=== PATIENT | female | born 1955 | race Caucasian/White ===

== ENCOUNTER 2016-12-04 18:12 | Emergency (ER) | payer BC, OTHER ==
[~2016-12-04] VITALS: Ht 157.5 cm; Wt 89.5 kg
[~2016-12-04 18:12] MED LIST: BIOTCAP2 PO; CALC1CHW32 PO; CHOL1TAB4 PO; CYAN10004 PO; DIPH50CA56 PO; EFFSR150 PO; GLC/500 PO; MAGN400T24 PO; MELO15TA4 PO; MULT-188 PO; NRN/300 PO; PRAM1TAB52; REMICADE; TRAM-10 PO; ZINC1TAB PO
[2016-12-04 18:17] VITALS: TEMP 37; Ht 157.5 cm; Wt 89.5 kg
[2016-12-04] MEDS ORDERED: [UNRECOGNIZED DRUG - CODE] PV (20:10)
[2016-12-04] MEDS ORDERED: ASPI325T45 PO (20:10)
[2016-12-04] MEDS ORDERED: OXYC-57 PO (20:10)
[2016-12-04] MEDS ORDERED: [UNRECOGNIZED DRUG - CODE] TOP (20:10)
[2016-12-04] MEDS ORDERED: NYSTCRE11 TOP (20:10)
[2016-12-04 21:24] LABS: URINE APPEARANCE CLEAR (CLEAR); URINE BILIRUBIN NEG (NEG); URINE COLOR YELLOW; URINE EPITHELIAL CELL AUTO 20-30 /lpf (0-5); URINE NITRITE POS (NEG); URINE SPECIFIC GRAVITY 1.025 (1.000-1.030); UROBILINOGEN NEG (NEG); ZZURINE CULT IF INDIC CATH YES
[2016-12-04 21:40] LABS: MANUAL MICROSCOPIC REQUIRED? NO; REVIEW REQ? NO
[2016-12-04] MEDS ORDERED: PHENAZOPYRIDINE HOME PACK 200 MG VIAL PO ONE (22:00)
[2016-12-04] MEDS ORDERED: SULFAMETHOXAZOLE/TRIMETHOPRIM DS 800/160MG TAB PO ONE (22:00)
[2016-12-04] MEDS ORDERED: SULF800T23 PO (22:21)
[2016-12-04] MEDS ORDERED: VALA1TAB2 PO (22:21)
[2016-12-04] MEDS ORDERED: CLOT1CRE3 TOP (22:21)
--- NOTE | 2016-12-04 22:22 | EMERGENCY ROOM VISIT NOTE ---
"History First contact with patient: 19:29 Chief Complaint: URINARY SYMPTOMS Stated Complaint: POSSIBLE SHINGLES, UTI, SYSTEMIC YEAST INFECTION Nursing Triage Summary: patient c/o possible shingles left back, history of shingles. Symptoms since patient c/o yeast under breasts, abdomen, vaginal. Urinary symtoms, frequency, urgency x 4 days getting worse. Fusion of left ankle Nov 08, no c/o with ankle. History of Present Illness The patient is a 61 year old female who presents to the Emergency Room with multiple complaints. The patient reports that she feels she may have shingles on her buttocks. She has had shingles in this location before and states it feels similar. She reports the rash started a few days ago. The patient also states that she has had ongoing issues with a yeast infection under her breasts , under her abdomen and in her groin. She states that there is redness of the skin and it is burning. She was previously prescribed nystatin cream and has been using this as needed. She has also been using a powder. She reports that she also has urinary symptoms for the past 4 days. She reports burning in her urine and a foul odor to the urine. She has had urinary tract infections in the past and states this feels similar. She has a history of fibromyalgia and ankylosing spondylitis and receives Remicade infusions. She reports her last infusion was 1.5 months ago. The patient denies any fevers, back pain, abdominal pain, nausea or vomiting. Review of Systems A complete 10-point Review of Systems was discussed with the patient, with pertinent positives and negatives listed in the History of Present Illness. All remaining Review of Systems questions can be considered negative unless otherwise specified. Social History Smoking Status: Never Smoker Marital Status: Housing Status: lives with significant other Current/Historical Medications Scheduled Aspirin (Aspirin), 325 MG PO BID Clotrimazole Vaginal (Clotrimazole), 1 APPLN TOP BID Gabapentin (Neurontin), 300 MG PO TID Metformin Hcl (Glucophage), 500 MG PO BID Powders (Anti Monkey Butt), 1 APPLN TOP prn Sulfa/Trimethoprim (Bactrim Ds 800MG/160MG), 1 TAB PO BID Tioconazole Vaginal (Monistat 1-Day), 1 APPLN PV PRN Valacyclovir Hcl (Valtrex), 1,000 MG PO TID Venlafaxine Hcl (Effexor Extended Rel), 150 MG PO DAILY [Remicade Inj], 1 DOSE INJ Q8WKS Scheduled PRN Nystatin/Triamcinolone (Mycogen || ), 1 APPLN TOP DAILY PRN for Oxycodone/Acetaminophen 5MG/325MG (Percocet 5MG/325MG), 1 TABLET PO Q4H PRN for Pain Allergies Coded Allergies: ALLERGY2 (Verified Allergy, Unknown, 12/04/16) Prochlorperazine (Verified Allergy, Unknown, 12/04/16) Uncoded Allergies: CONTRASTMEDIA (Allergy, Unknown, 01/05/10) Physical Exam Vital Signs Date Time Temp Pulse Resp B/P Pulse Ox O2 Delivery O2 Flow Rate FiO2 12/04/16 22:48 68 18 160/94 98 12/04/16 18:17 37.0 88 17 144/77 97 Room Air Physical Exam VITALS: Vitals are noted on the nurse's note and reviewed by myself. Vital signs stable. GENERAL: This is a 61-year-old female, in no acute distress, nondiaphoretic, well-developed well-nourished. SKIN: There is a vesicular, crusted, erythematous rash over the left upper buttock. It is very tender to palpation. Additionally, there is an erythematous, fungal appearing rash on her bilateral breasts, under the pannus, and in the upper inner thighs. HEART: Regular rate and rhythm without murmurs gallops or rubs. LUNGS: Clear to auscultation bilaterally without wheezes, rales or rhonchi. ABDOMEN: Soft, nontender to palpation. NEURO: Patient was alert and oriented to person place and time. Medical Decision & Procedures Laboratory Results Test 12/04/16 00:00 12/04/16 21:00 Urine Color YELLOW Urine Appearance CLEAR (CLEAR) Urine pH 6.0 (4.5-7.5) Urine Specific [place] 1.025 (1.000-1.030) Urine Protein NEG (NEG) Urine Glucose (UA) NEG (NEG) Urine Ketones NEG (NEG) Urine Occult Blood NEG (NEG) Urine Nitrite POS (NEG) Urine Bilirubin NEG (NEG) Urine Urobilinogen NEG (NEG) Urine Leukocyte Esterase TRACE (NEG) Urine WBC (Auto) 1-5 /hpf (0-5) Urine RBC (Auto) 0-4 /hpf (0-4) Urine Hyaline Casts (Auto) 1-5 /lpf (0-5) Urine Epithelial Cells (Auto) 20-30 /lpf (0-5) Urine Bacteria (Auto) 4+ (NEG) Medications Administered Medications (Trade) Dose Ordered Sig/Javier Route Start Time Stop Time Status Last Admin Dose Admin Valacyclovir HCl (Valtrex Tab) 1,000 mg NOW ONCE PO 12/04/16 22:00 12/04/16 22:01 DC 12/04/16 22:33 1,000 MG Trimethoprim/ Sulfamethoxazole (Septra Ds 800/ 160MG Tab) 1 tab NOW ONCE PO 12/04/16 22:00 12/04/16 22:01 DC 12/04/16 22:33 1 TAB Phenazopyridine HCl (Phenazopyridine HCl 200MG Home Pack) 1 homepack UD ONCE PO 12/04/16 22:00 12/04/16 22:01 DC 12/04/16 22:34 1 HOMEPACK Medical Decision Differential diagnosis includes herpes zoster, folliculitis, urinary tract infection, candidiasis, among others. The patient was evaluated as above. A urinalysis was performed which did show evidence of a urinary tract infection, with the presence of 4+ bacteria, positive nitrites and leukocyte esterase. She has been here once before for a urinary tract infection, which grew out pansensitive Escherichia coli. The patient is also requesting something for her candidal infection and possible herpes zoster. I am unsure at this time if this represents a herpes zoster or folliculitis in both bacterial and viral cultures were obtained. The patient's current medications and conditions were discussed with the ED pharmacist, who assisted in the decision-making process. The patient will be placed on Valtrex. She was given clotrimazole cream for her intertriginous candidiasis. She was given a prescription for Bactrim and Pyridium for her urinary tract infection pending the culture results. She will follow-up with her primary care provider in the next 1-2 weeks. She will return for any new/concerning symptoms. She verbalized understanding of my assessment and treatment plan and was discharged home in good condition. Impression Primary Impression: Urinary tract infection Additional Impressions: Intertriginous candidiasis, Herpes zoster Departure Information Dispostion Home / Self-Care Condition GOOD Prescriptions Sulfa/Trimethoprim (Bactrim Ds 800MG/160MG) Tab 1 TAB PO BID for 3 Days, #6 TAB Prov: Augusta Miller PA-C 12/04/16 Clotrimazole Vaginal (CLOTRIMAZOLE) 1 % Cre 1 APPLN TOP BID for 30 Days, #1 TUBE 1 Refill Prov: Augusta Miller PA-C 12/04/16 Valacyclovir Hcl (VALTREX) 1 Gm Tab 1000 MG PO TID for 10 Days, #30 TAB Prov: Augusta Miller PA-C 12/04/16 Referrals Lucas Tai DO (PCP) Patient Instructions A Signature Page, [facility] Additional Instructions You were prescribed Bactrim to be taken twice daily for 3 days. This is an antibiotic. All antibiotics have the potential to cause diarrhea. Stop this medication and contact a medical provider if you were to develop any significant adverse side effects including: wheezing, shortness of breath, passing out, vomiting, or a diffuse rash. Always take antibiotics as directed and COMPLETE the ENTIRE course regardless of the improvement of your symptoms. Clotrimazole cream: Apply this to the areas of fungal infection twice daily for 4 weeks or until symptoms resolve. Valtrex: 1 tablet 3 times daily for 10 days. Follow-up with your primary care provider in 2-3 days with further evaluation and recheck."
[2016-12-04 22:48] VITALS: BP 160/94; PULSE 68; O2SAT 98
--- NOTE | 2016-12-05 20:22 | Pharmacy Progress Note ---
ED Pharmacist Progress Note Date of Service: Dec 05, 2016. Patient seen in ED and evaluated for UTI, intertriginous candidiasis, and herpes zoster. Patient was sent home with a prescription for Bactrim x3 days to cover for UTI. Bactrim may also cover the coagulase negative Staph growing from the patient' s wound culture. However, if this was a cellulitis in addition to herpes zoster , a 3 day course may be inadequate. Spoke DHARMESH Blackmon, who noted that the wound did not look like cellulitis and that the coagulase negative Staph may be a contaminant from normal skin hamzah. OK continuing with 3 day course of Bactrim for now. This patient will also be re-evaluated at a later time as there is a preliminary urine culture result and the ED staff will be notified when it is finalized. Can follow up with the patient at that time regarding coagulase negative Staph in wound if the provider deems it appropriate. Bactrim may also cover the Gram negative bacilli growing from the patient's urine culture, pending final identification and sensitivities. No intervention required at this time.
--- NOTE | 2016-12-11 16:35 | Pharmacy Progress Note ---
ED Pharmacist Progress Note Date of Service: Dec 11, 2016. Patient called the ER today to say she was having a recurrence of urinary symptoms (frequency, dysuria) since she stopped taking the Bactrim ~4-5 days ago. She had been prescribed a 3 day course of Bactrim DS which she completed. E coli in the urine cx was reported to be sensitive to Bactrim. However this patient has a h/o immunosuppression (Remicade infusions), pre-DM as well as h/o bladder suspension. Discussed the case with Dr Fernandez, and the decision was made to place the patient on abx therapy again, but will change abx to something else the e coli was sensitive to and extend the duration of tx to 10 days for complicated UTI. Called in Rx for Keflex 500mg PO TID x 10 days, no refills, auth by Dr Fernandez; to [facility] [phone] Patient was notified of this decision.
== END 2016-12-04 22:51 | disposition home or self-care (01) ==
LOC: C.EDB 18:15
DX: N39.0 Urinary tract infection, site not specified (principal); B02.9 Zoster without complications; B37.2 Candidiasis of skin and nail; M79.7 Fibromyalgia; M45.9 Ankylosing spondylitis of unspecified sites in spine; Z79.82 Long term (current) use of aspirin; Z79.899 Other long term (current) drug therapy

== ENCOUNTER → 2017-12-12 | Outpatient (CLI) | payer OTHER ==
[~2017-12-12] MED LIST changes: +ASPI325T45 PO; -BIOTCAP2 PO; -CALC1CHW32 PO; -CHOL1TAB4 PO; +CLOT1CRE3 TOP; -CYAN10004 PO; -DIPH50CA56 PO; -MAGN400T24 PO; -MELO15TA4 PO; -MULT-188 PO; +NYSTCRE11 TOP; +OXYC-57 PO; -PRAM1TAB52; -TRAM-10 PO; -ZINC1TAB PO; +[UNRECOGNIZED DRUG - CODE] PV; +[UNRECOGNIZED DRUG - CODE] TOP
== END | disposition home or self-care (01) ==
LOC: C.LABSPEC 14:20
PROVIDERS: ATTEND Urology
DX: R32 Unspecified urinary incontinence (principal); R30.0 Dysuria; R31.29 Other microscopic hematuria

== ENCOUNTER → 2017-12-29 | Outpatient (CLI) | payer OTHER ==
[~2017-12-29] MED LIST changes: +GADAVIST IV PRN
--- NOTE | 2017-12-29 13:45 | DIAGNOSTIC IMAGING REPORT ---
ABDOMEN COMBO CLINICAL HISTORY: 62 years-old Female presenting with R32 Urinary [id number] Hematuria, microscopic. TECHNIQUE: Multisequence, multiplanar MR imaging of the abdomen was performed before and after the administration of intravenous contrast. IV contrast: 8.5 mL of Gadavist. COMPARISON: None. FINDINGS: Localizer images: Unremarkable. Lung bases: Lungs and pleural spaces clear. Normal heart size. No pericardial or pleural effusion. Liver: Normal morphology. Well-defined T2 hyperintense nonenhancing lesions compatible with hepatic cysts or hamartomas. Hepatic fat fraction measures 19.2% consistent with moderate steatosis. Biliary: No intrahepatic or extrahepatic biliary ductal dilatation. Normal gallbladder. Pancreas: Normal. Spleen: Normal. Adrenal glands: Normal. Kidneys and ureters: Normal. No hydronephrosis. The proximal to mid ureters are normal. Bladder: Decompressed. Bowel: Marked stool burden in the distended colon. This is primarily in the cecum. No bowel obstruction. Peritoneal cavity: No free fluid or intraperitoneal gas. Lymph nodes: No enlarged lymph nodes in the abdomen. Vasculature: Aorta and IVC patent and normal in caliber. Abdominal wall: Normal. Musculoskeletal: Normal. IMPRESSION: 1. No evidence of a renal or proximal to mid ureteral mass. No hydronephrosis. 2. Bladder decompressed and incompletely evaluated. There is continuing clinical concern, CT urogram could be performed. 3. Marked stool burden in the distended colon. 4. Moderate hepatic steatosis. Electronically signed by: Alok Chaudhari M.D. 12/29/2017 1:43 PM Dictated Date/Time: 12/29/2017 1:34 PM
--- NOTE | 2017-12-29 13:47 | DIAGNOSTIC IMAGING REPORT ---
PELVIC COMBO CLINICAL HISTORY: 62 years-old Female presenting with R32 Urinary [id number] Hematuria, microscopic. TECHNIQUE: Multisequence, multiplanar MR imaging of the pelvis was performed before and after the administration of intravenous contrast. IV contrast: 8.5 mL of Gadavist. COMPARISON: None. FINDINGS: Localizer images: Unremarkable. Lung bases: Lungs and pleural spaces clear. Normal heart size. No pericardial or pleural effusion. Liver: Normal morphology. Well-defined T2 hyperintense nonenhancing lesions compatible with hepatic cysts or hamartomas. Hepatic fat fraction measures 19.2% consistent with moderate steatosis. Biliary: No intrahepatic or extrahepatic biliary ductal dilatation. Normal gallbladder. Pancreas: Normal. Spleen: Normal. Adrenal glands: Normal. Kidneys and ureters: Normal. No hydronephrosis. The proximal to mid ureters are normal. Bladder: Decompressed and incompletely evaluated. No abnormal inferior displacement of the latter neck. Pelvic organs: Postsurgical changes of hysterectomy. No howard evidence of abnormal inferior displacement of the vaginal cuff. No adnexal masses. Bowel: Marked stool burden in the distended colon. This is primarily in the cecum. No bowel obstruction. Peritoneal cavity: No free fluid or intraperitoneal gas. Lymph nodes: No enlarged lymph nodes in the visualized portion of the pelvis. Vasculature: Aorta and IVC patent and normal in caliber. Abdominal wall: Normal. Musculoskeletal: Normal. IMPRESSION: 1. Post surgical changes of hysterectomy. 2. No evidence of a renal or proximal to mid ureteral mass. No hydronephrosis. 3. Bladder decompressed and incompletely evaluated. No abnormal inferior displacement of the bladder neck to suggest prolapse. If there is continuing clinical concern, CT urogram could be obtained. 4. Marked stool burden in the distended colon. 5. Moderate hepatic steatosis. Electronically signed by: Alok Chaudhari M.D. 12/29/2017 1:46 PM Dictated Date/Time: 12/29/2017 1:43 PM
== END | disposition home or self-care (01) ==
LOC: C.MRI 11:58
PROVIDERS: ATTEND Urology
DX: R31.29 Other microscopic hematuria (principal); R32 Unspecified urinary incontinence; R93.41 Abnormal radiologic findings on diagnostic imaging of renal pelvis, ureter, or bladder; K76.0 Fatty (change of) liver, not elsewhere classified